=== PATIENT | female | born 1950 ===

== ENCOUNTER 2025-02-13 01:17 | Day surgery (SDC) | payer MEDICARE ==
[~2025-02-13] VITALS: Wt 62.9 kg
[2025-02-13] MEDS ORDERED: NS IV SCH (14:20)
[2025-02-13] MEDS ORDERED: INFLIXIMAB ABDA IV SCH (14:20)
[2025-02-13] MEDS ORDERED: ALBU90OI INH (14:24)
[2025-02-13] MEDS ORDERED: BACL10 PO (14:24)
[2025-02-13] MEDS ORDERED: AMLO5 PO (14:24)
[2025-02-13] MEDS ORDERED: Calcium Carbon500 MG PO (14:25)
[2025-02-13] MEDS ORDERED: Vitamin D1000 UNI1 PO (14:25)
[2025-02-13] MEDS ORDERED: Bentyl10 MG PO (14:25)
[2025-02-13] MEDS ORDERED: CENTRUM SILVER1 EAC2 PO (14:26)
[2025-02-13] MEDS ORDERED: DIPH50 PO (14:26)
[2025-02-13] MEDS ORDERED: Zocor20 MG PO (14:27)
[2025-02-13] MEDS ORDERED: STIOLTO RESPIMAT4 G1 INH (14:27)
[2025-02-13] MEDS ORDERED: RENFLEXIS100 M4 (14:28)
[2025-02-13] MEDS ORDERED: GABA100 PO (14:29)
[2025-02-13 14:31] VITALS: BP 144/71
[2025-02-13] MEDS ORDERED: OXCARBAZEPINE150 M1 PO (14:31)
== END 2025-02-13 16:57 | disposition home or self-care (01) ==
LOC: ATC 01:17
DX: K50.012 Crohn's disease of small intestine with intestinal obstruction (principal); D50.0 Iron deficiency anemia secondary to blood loss (chronic); I10 Essential (primary) hypertension; E78.00 Pure hypercholesterolemia, unspecified; K21.9 Gastro-esophageal reflux disease without esophagitis; Z88.1 Allergy status to other antibiotic agents; Z88.5 Allergy status to narcotic agent; Z79.899 Other long term (current) drug therapy; Z87.891 Personal history of nicotine dependence; Z90.49 Acquired absence of other specified parts of digestive tract
CPT/HCPCS: 96375; 96413; 96415; J2919; J7050; Q5104

== ENCOUNTER 2025-03-27 02:22 | Day surgery (SDC) | payer MEDICARE ==
[~2025-03-27] VITALS: Wt 64.2 kg
[~2025-03-27 02:22] MED LIST: ALBU90OI INH; AMLO5 PO; BACL10 PO; Bentyl10 MG PO; CENTRUM SILVER1 EAC2 PO; Calcium Carbon500 MG PO; DIPH50 PO; GABA100 PO; OXCARBAZEPINE150 M1 PO; RENFLEXIS100 M4; STIOLTO RESPIMAT4 G1 INH; Vitamin D1000 UNI1 PO; Zocor20 MG PO
[2025-03-27] MEDS ORDERED: NS IV SCH (14:05)
[2025-03-27] MEDS ORDERED: INFLIXIMAB ABDA IV SCH (14:05)
[2025-03-27 14:20] VITALS: BP 135/69
[2025-03-27 14:34] LABS: BASOPHILS ABSOLUTE AUTO 0.03 K/mm3 (0.00-0.23); BASOPHILS PERCENT AUTO 1 % (0-2); EOSINOPHILS ABSOLUTE AUTO 0.14 K/mm3 (0.00-0.68); EOSINOPHILS PERCENT AUTO 3 % (0-6); Hematocrit 35.1 % (33.0-51.0); Hemoglobin 11.4 g/dL (11.5-16.0); IMMATURE GRAN ABSOLUTE AUTO 0.02 K/mm3 (0.00-0.10); IMMATURE GRAN PERCENT AUTO 0 % (0-1); LYMPHOCYTES ABSOLUTE AUTO 1.99 K/mm3 (0.84-5.20); LYMPHOCYTES PERCENT AUTO 42 % (21-46); MONOCYTES ABSOLUTE AUTO 0.62 K/mm3 (0.16-1.47); MONOCYTES PERCENT AUTO 13 % (4-13); Mean Corpuscular HGB Conc 32.5 g/dL (31.5-36.5); Mean Corpuscular Volume 74 fL (80-100); NEUTROPHILS ABSOLUTE AUTO 2.00 K/mm3 (1.96-9.15); NEUTROPHILS PERCENT AUTO 42 % (41-73); NRBC ABSOLUTE 0.00 K/mm3 (0.00-0.02); NRBC Auto 0.0 /100 WBC (0.0-0.2); Platelet Count 585 K/mm3 (150-400); RDW Coefficient Variation 19.8 % (11.7-14.2); RDW Standard Deviation 51.8 fL (35.1-46.3)
[2025-03-27 14:53] LABS: Alanine Aminotransfer (ALT/SGP 26.0 U/L (12-78); Albumin, Blood 3.6 g/dL (3.4-5.0); Albumin/Globulin Ratio 0.9 (0.8-1.8); Anion Gap 7.0 mmol/L (3-11); Aspartate Aminotrans (AST/SGOT 20.0 U/L (12-37); Bilirubin, Total 0.2 mg/dL (0.1-1.0); Blood Urea Nitrogen 14.0 mg/dL (8-24); CO2, Blood 26.0 mmol/L (21-32); Calcium, Blood 8.9 mg/dL (8.5-10.1); Chloride, Blood 107.0 mmol/L (98-108); Creatinine, Blood 0.57 mg/dL (0.40-1.00); Globulin, Blood 3.8 g/dL (2.2-4.0); Glucose, Blood 91.0 mg/dL (70-99); Potassium, Blood 3.8 mmol/L (3.5-5.5); Sodium, Blood 136.0 mmol/L (136-145); Total Protein, Blood 7.4 g/dL (6.4-8.2)
== END 2025-03-27 16:59 | disposition home or self-care (01) ==
LOC: ATC 02:22
PROVIDERS: Specialist
DX: K50.012 Crohn's disease of small intestine with intestinal obstruction (principal); D50.0 Iron deficiency anemia secondary to blood loss (chronic); I10 Essential (primary) hypertension; E78.5 Hyperlipidemia, unspecified; K21.9 Gastro-esophageal reflux disease without esophagitis; M85.80 Other specified disorders of bone density and structure, unspecified site; Z79.899 Other long term (current) drug therapy; Z88.1 Allergy status to other antibiotic agents; Z88.5 Allergy status to narcotic agent; Z87.891 Personal history of nicotine dependence
CPT/HCPCS: 80053; 85025; 96375; 96413; 96415; J2919; J7050; Q5104

== ENCOUNTER 2025-05-08 00:23 | Day surgery (SDC) | payer MEDICARE ==
[2025-05-08 09:11] VITALS: BP 131/77
[2025-05-08] MEDS ORDERED: NS IV SCH (09:15)
[2025-05-08] MEDS ORDERED: INFLIXIMAB ABDA IV SCH (09:15)
== END 2025-05-08 11:46 | disposition home or self-care (01) ==
LOC: ATC 00:23
DX: K50.012 Crohn's disease of small intestine with intestinal obstruction (principal); D50.0 Iron deficiency anemia secondary to blood loss (chronic); M47.9 Spondylosis, unspecified; K21.9 Gastro-esophageal reflux disease without esophagitis; I10 Essential (primary) hypertension; E78.00 Pure hypercholesterolemia, unspecified; Z79.899 Other long term (current) drug therapy; Z88.0 Allergy status to penicillin; Z88.5 Allergy status to narcotic agent
CPT/HCPCS: 96413; 96415; J2919; J7050; Q5104